=== PATIENT | male | born 1990 | race American Indian/Alaskan Native ===

== ENCOUNTER 2017-03-22 12:53 | Emergency (ER) | payer MEDICAID ==
[2017-03-22 13:07] VITALS: BP 131/78; PULSE 76; RESP 16; TEMP 98.1; O2SAT 99
[2017-03-22 14:07] LABS: RBC URINE 2 /hpf (0-3)
[2017-03-22 14:27] LABS: URINE BILIRUBIN NEGATIVE (NEGATIVE); URINE BLOOD 1+ (NEGATIVE); URINE COLOR YELLOW (YELLOW); URINE GLUCOSE (UA) NEGATIVE (Normal); URINE KETONE NEGATIVE (NEGATIVE); URINE LEUKOCYTE ESTERASE NEGATIVE Leu/uL (Negative); URINE PROTEIN NEGATIVE (NEGATIVE); URINE UROBILINOGEN NORMAL mg/dL (0.2-1.0)
[2017-03-22] MEDS ORDERED: cefTRIAXone (Rocephin) 250 mg Inj IM STA (14:31)
--- NOTE | 2017-03-22 15:04 | C.PDOC ---
History Of Present Illness 26 yr old male presents to the ER with complaints of several day history of penile discharge and dysuria. Patient states he recently had unprotected sex with another women. Patient denies fever, nausea, vomiting, rash, abdominal pain , testicular pain, testicular swelling, back pain, weakness or numbness. Time Seen by Provider: 03/22/17 13:09 Chief Complaint (Nursing): Male Genitourinary History Per: Patient History/Exam Limitations: no limitations Onset/Duration Of Symptoms: Days Current Symptoms Are (Timing): Still Present Associated Symptoms: denies: Fever, Chills, Back Pain Alleviating Factors: None Recent travel outside of the [place]: No Past Medical History Reviewed: Historical Data, Nursing Documentation, Vital Signs Vital Signs: Last Vital Signs Temp 98.1 F 03/22/17 13:05 Pulse 76 03/22/17 13:05 Resp 16 03/22/17 13:05 BP 131/78 03/22/17 13:05 Pulse Ox 99 03/22/17 19:59 Family History: States: No Known Family Hx - Social History Hx Alcohol Use: Yes Hx Substance Use: No - Immunization History Hx Tetanus Toxoid Vaccination: No Hx Influenza Vaccination: No Hx Pneumococcal Vaccination: No Review Of Systems Except As Marked, All Systems Reviewed And Found Negative. Constitutional: Negative for: Fever Gastrointestinal: Negative for: Nausea, Vomiting, Abdominal Pain Genitourinary: Positive for: Dysuria, Penile Discharge Musculoskeletal: Negative for: Back Pain Neurological: Negative for: Weakness, Numbness Physical Exam - Physical Exam Appears: Non-toxic, No Acute Distress Skin: Warm, Dry, No Rash Head: Atraumatic, Normacephalic Eye(s): bilateral: Normal Inspection Oral Mucosa: Moist Neck: Normal ROM, Supple Chest: Symmetrical, No Tenderness Cardiovascular: Rhythm Regular, No Friction Rub, No Murmur Respiratory: Normal Breath Sounds, No Rales, No Rhonchi, No Stridor, No Wheezing Gastrointestinal/Abdominal: Normal Exam, Soft, No Tenderness, No Guarding, No Rebound Extremity: Normal ROM, No Swelling Neurological/Psych: Oriented x3, Normal Speech, Normal Motor Gait: Steady ED Course And Treatment O2 Sat by Pulse Oximetry: 99 (RA) Pulse Ox Interpretation: Normal Medical Decision Making Medical Decision Making: PLAN: * Chlamydia GC * Urinalysis * Azithromycin PO * Rocephin IM Disposition - Disposition Referrals: El Jimenez MD [Staff Provider] - Disposition: HOME/ ROUTINE Disposition Time: 15:02 Condition: GOOD Additional Instructions: Make sure to get sexual partners treated. Follow up with the medical doctor within 1-2 days. Return if worsened. 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 - Scribe Statement The provider has reviewed the documentation as recorded by the Scribe Willa Villalobos All medical record entries made by the Pippaibe were at my direction and personally dictated by me. I have reviewed the chart and agree that the record accurately reflects my personal performance of the history, physical exam, medical decision making, and the department course for this patient. I have also personally directed, reviewed, and agree with the discharge instructions and disposition.
== END 2017-03-22 15:16 | disposition home or self-care (01) ==
LOC: C.ER 12:53
DX: N34.2 Other urethritis (principal)
CPT/HCPCS: 81001; 87086; 87491; 87591; 96372; 99284; J0696

== ENCOUNTER 2017-09-10 11:02 | Emergency (ER) | payer MEDICAID, OTHER ==
[2017-09-10 11:06] VITALS: RESP 18; TEMP 98.1
[2017-09-10] MEDS ORDERED: cefTRIAXone (Rocephin) 250 mg Inj IM STA (12:01)
--- NOTE | 2017-09-10 12:34 | C.PDOC ---
History Of Present Illness 27-year-old male, presents to the emergency department with complaints of discharge from penis since this morning associated with dysuria. Patient notes he had unprotected intercourse with new partner earlier in the week. States he has a history of similar episode last year and was diagnosed with Chlamydia. Denies any testicular pain, fever, hematuria, abdominal pain or any other associated symptoms. No other complaints at this time. Time Seen by Provider: 09/10/17 11:18 Chief Complaint (Nursing): Male Genitourinary History Per: Patient History/Exam Limitations: no limitations Onset/Duration Of Symptoms: Days Current Symptoms Are (Timing): Still Present Past Medical History Reviewed: Historical Data, Nursing Documentation, Vital Signs Vital Signs: Last Vital Signs Temp 98.1 F 09/10/17 13:02 Pulse 58 L 09/10/17 13:02 Resp 18 09/10/17 13:02 BP 131/85 09/10/17 13:02 Pulse Ox 100 09/10/17 13:36 Family History: States: No Known Family Hx - Social History Hx Alcohol Use: Yes Hx Substance Use: No - Immunization History Hx Tetanus Toxoid Vaccination: No Hx Influenza Vaccination: No Hx Pneumococcal Vaccination: No Physical Exam - Physical Exam Appears: Well, Non-toxic, No Acute Distress Skin: Normal Color, Warm, Dry, No Rash Eye(s): bilateral: Normal Inspection, EOMI Nose: Normal Oral Mucosa: Moist Lips: Normal Appearing Neck: Normal ROM Cardiovascular: Rhythm Regular Respiratory: Normal Breath Sounds, No Accessory Muscle Use Gastrointestinal/Abdominal: Soft, No Tenderness, No Guarding, No Rebound Extremity: Normal ROM Neurological/Psych: Oriented x3, Normal Speech ED Course And Treatment O2 Sat by Pulse Oximetry: 100 (RA) Pulse Ox Interpretation: Normal Progress Note: GC/Chlamydia, Urine Culture and UA ordered and reviewed. Patient treated with IM Rocephin and PO Azithromycin. Patient advised to use protection for intercourse, and treat partner. Disposition - Disposition Referrals: Noman Nichols MD [Staff Provider] - Disposition: HOME/ ROUTINE Disposition Time: 12:42 Condition: STABLE Additional Instructions: Follow up with your primary medical doctor or clinic in 2-5 days for further evaluation. Return to the emergency department at any time if symptoms persist or worsen. Instructions: Urethritis, Screening for Sexually Transmitted Infections Forms: [employer] (Polish) - Clinical Impression Clinical Impression: Urethritis - Scribe Statement The provider has reviewed the documentation as recorded by the Scribe (Grace Grey) All medical record entries made by the Scribe were at my direction and personally dictated by me. I have reviewed the chart and agree that the record accurately reflects my personal performance of the history, physical exam, medical decision making, and the department course for this patient. I have also personally directed, reviewed, and agree with the discharge instructions and disposition.
[2017-09-10 12:56] LABS: SQUAMOUS EPITHIAL < 1 /hpf (0-5); URINE BACTERIA RARE (<OCC); URINE BILIRUBIN NEGATIVE (NEGATIVE); URINE BLOOD NEGATIVE (NEGATIVE); URINE CLARITY Clear (Clear); URINE COLOR Yellow (YELLOW); URINE GLUCOSE (UA) NORMAL (Normal); URINE LEUKOCYTE ESTERASE TRACE Leu/uL (Negative); URINE NITRATE NEGATIVE (NEGATIVE); URINE PROTEIN NEGATIVE (NEGATIVE); URINE UROBILINOGEN NORMAL mg/dL (0.2-1.0)
[2017-09-10 13:03] VITALS: BP 131/85; PULSE 58
[2017-09-10 13:35] VITALS: O2SAT 100
== END 2017-09-10 13:05 | disposition home or self-care (01) ==
LOC: C.ER 11:02
DX: N34.2 Other urethritis (principal)
CPT/HCPCS: 81001; 87086; 87491; 87591; 96372; 99285; J0696

== ENCOUNTER 2017-09-14 01:29 | Emergency (ER) | payer OTHER ==
--- NOTE | 2017-09-14 02:52 | C.PDOC ---
History Of Present Illness 27 y/o male presents to ED with complaints of stomachache associated with fever , nausea, and dizziness that began today. Patient states he did not eat at all today. Denies cough, runny nose, or any other complaints. Patient took Tylenol with mild relief. Patient has a positive sick contact at home. Time Seen by Provider: 09/14/17 01:50 Chief Complaint (Nursing): Fever History Per: Patient History/Exam Limitations: no limitations Onset/Duration Of Symptoms: Hrs Current Symptoms Are (Timing): Still Present Location Of Pain: None Sick Contacts (Context): Family Member(s) (sister) Associated Symptoms: Fever, Nausea. denies: Chills, Vomiting Ear Symptoms: Bilateral: None Severity: None Recent travel outside of the [place]: No Past Medical History Reviewed: Historical Data, Nursing Documentation, Vital Signs Vital Signs: Last Vital Signs Temp 98.7 F 09/14/17 03:16 Pulse 85 09/14/17 03:16 Resp 18 09/14/17 03:16 BP 102/60 09/14/17 03:16 Pulse Ox 97 09/14/17 03:48 - Medical History PMH: No Chronic Diseases Surgical History: No Surg Hx Family History: States: No Known Family Hx - Social History Hx Alcohol Use: Yes Hx Substance Use: No - Immunization History Hx Tetanus Toxoid Vaccination: No Hx Influenza Vaccination: No Hx Pneumococcal Vaccination: No Review Of Systems Constitutional: Positive for: Fever. Negative for: Chills ENT: Negative for: Nose Discharge Respiratory: Negative for: Cough Gastrointestinal: Positive for: Nausea, Other (stomachache). Negative for: Vomiting, Diarrhea Neurological: Positive for: Dizziness. Negative for: Weakness, Numbness Physical Exam - Physical Exam Appears: Non-toxic, No Acute Distress Skin: Normal Color, Warm, No Rash Head: Atraumatic, Normacephalic Eye(s): bilateral: Normal Inspection, PERRL, EOMI Ear(s): Bilateral: Normal Oral Mucosa: Moist Throat: No Erythema, No Exudate Neck: Normal ROM, Supple Chest: Symmetrical, No Tenderness Cardiovascular: Rhythm Regular, No Friction Rub, No Murmur Respiratory: No Decreased Breath Sounds, No Rales, No Rhonchi, No Wheezing Gastrointestinal/Abdominal: Soft, No Tenderness, No Distention, No Guarding, No Rebound Back: Normal Inspection, No CVA Tenderness Extremity: Normal ROM, No Tenderness, No Swelling Neurological/Psych: Oriented x3, Normal Speech, Normal Cognition, Normal Motor Gait: Steady ED Course And Treatment O2 Sat by Pulse Oximetry: 97 (RA) Pulse Ox Interpretation: Normal Medical Decision Making Medical Decision Making: Administered Motrin, Tamiflu, and Zofran. On re-exam, the patient reports improvement of symptoms. Lungs are CTA, heart is RRR, abdomen is soft, non-tender and tolerating PO well. Ambulatory in the ED with steady gait. Follow up with the medical doctor/clinic within 1-2 days. Return if worsened. Disposition - Disposition Referrals: [facility] at [facility] [Outside] Disposition: HOME/ ROUTINE Disposition Time: 03:47 Condition: FAIR Additional Instructions: Follow up with the medical doctor within 1-2 days. Return if worsened. 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 - Scribe Statement The provider has reviewed the documentation as recorded by the Katy Bustillos All medical record entries made by the Pippaibcharly were at my direction and personally dictated by me. I have reviewed the chart and agree that the record accurately reflects my personal performance of the history, physical exam, medical decision making, and the department course for this patient. I have also personally directed, reviewed, and agree with the discharge instructions and disposition.
[2017-09-14 03:17] VITALS: BP 102/60; PULSE 85; RESP 18; TEMP 98.7
[2017-09-14 03:48] VITALS: O2SAT 97
== END 2017-09-14 04:14 | disposition home or self-care (01) ==
LOC: C.ER 01:29
DX: J11.1 Influenza due to unidentified influenza virus with other respiratory manifestations (principal); R50.9 Fever, unspecified

== ENCOUNTER 2018-02-18 10:41 | Emergency (ER) | payer MEDICAID, OTHER ==
[2018-02-18 10:49] VITALS: BP 132/80; PULSE 79; RESP 18; TEMP 98.4; O2SAT 98
--- NOTE | 2018-02-18 11:05 | C.PDOC ---
History Of Present Illness <Berkley Martinez Yaritza - Last Filed: 02/18/18 12:12> <Jose Maria Barney - Last Filed: 02/18/18 13:35> Patient is a 27 year old male with no known past medical history, who presents to the ED with complaint of right hand pain s/p punching the wall a couple of days ago. Patient admits to very mild limited range of motion but he has been able to continue to work with his hands. In addition, patient had complaint of dry skin in his scrotum. Otherwise, patient is stable and with no other associated symptoms. (Jose Maria Barney) <JuanBerkley M - Last Filed: 02/18/18 12:12> History Per: Patient History/Exam Limitations: no limitations Onset/Duration Of Symptoms: Days Current Symptoms Are (Timing): Still Present Severity: Moderate Location: Right hand ( Dorsal) Recent travel outside of the [place]: No <Jose Maria Barney - Last Filed: 02/18/18 13:35> Time Seen by Provider: 02/18/18 10:55 Chief Complaint (Nursing): Upper Extremity Problem/Injury Past Medical History Family History: States: No Known Family Hx - Social History Hx Alcohol Use: Yes Hx Substance Use: No - Immunization History Hx Tetanus Toxoid Vaccination: No Hx Influenza Vaccination: No Hx Pneumococcal Vaccination: No <Jose Maria Barney - Last Filed: 02/18/18 13:35> Vital Signs: Last Vital Signs Temp 98.4 F 02/18/18 10:55 Pulse 79 02/18/18 10:55 Resp 18 02/18/18 10:55 BP 132/80 02/18/18 10:55 Pulse Ox 98 02/18/18 12:05 Review Of Systems Constitutional: Negative for: Fever, Chills, Weakness, Weight loss Eyes: Negative for: Pain Cardiovascular: Negative for: Chest Pain, Palpitations, Orthopnea, Edema, Light Headedness Respiratory: Negative for: Cough, Shortness of Breath Gastrointestinal: Negative for: Nausea, Abdominal Pain, Diarrhea, Constipation Genitourinary: Negative for: Dysuria, Incontinence, Hematuria Musculoskeletal: Positive for: Hand Pain Skin: Negative for: Bruising Neurological: Negative for: Weakness, Numbness <Jose Maria Barney - Last Filed: 02/18/18 13:35> Physical Exam - Physical Exam Skin: Normal Color, Warm Head: Atraumatic, Normacephalic Eye(s): bilateral: EOMI Oral Mucosa: Moist Neck: Normal Male Genital: Other (Dry skin in the scrotum region ) Extremity: Tenderness (Right hand tenderness localized to the dorsal region, pain elicited with flexion, ulnar and radial deviation ) Neurological/Psych: Oriented x3, Normal Speech Disoriented To: Person <Jose Maria Barney E - Last Filed: 02/18/18 13:35> ED Course And Treatment O2 Sat by Pulse Oximetry: 98 <Jose Maria Barney E - Last Filed: 02/18/18 13:35> Medical Decision Making <Berkley Martinez - Last Filed: 02/18/18 12:12> <Jose Maria Barney E - Last Filed: 02/18/18 13:35> Medical Decision Making: Right Hand X-ray: Normal right hand radiographs. (Jose Maria Barney) Disposition Counseled Patient/Family Regarding: Studies Performed, Diagnosis, Need For Followup - Disposition Disposition Time: 12:13 - POA Present On Arrival: None <Berkley Martinez - Last Filed: 02/18/18 12:12> Discussed With : Berkley Martinez <Jose Maria Barney - Last Filed: 02/18/18 13:35> - Disposition Referrals: at [facility] [Outside] Disposition: HOME/ ROUTINE Condition: STABLE Additional Instructions: Follow up in clinic with any further issues. Use Aquaphor or other moisturizer for dry skin. Instructions: Contusion (DC) Forms: [employer] (Czech), General Discharge Instructions - Clinical Impression Clinical Impression: Contusion
--- NOTE | 2018-02-18 11:47 | RAD ---
PROCEDURE: Right Hand Radiographs. HISTORY: Trauma COMPARISON: None. FINDINGS: BONES: Normal. No fracture. JOINTS: Normal. No osteoarthritic changes. SOFT TISSUES: Normal. OTHER FINDINGS: None. IMPRESSION: Normal right hand radiographs.
== END 2018-02-18 12:20 | disposition home or self-care (01) ==
LOC: C.ER 10:41
DX: S60.221A Contusion of right hand, initial encounter (principal); W22.01XA Walked into wall, initial encounter

== ENCOUNTER 2018-02-18 15:53 | Emergency (ER) | payer MEDICAID ==
[2018-02-18 15:57] VITALS: BP 129/75; PULSE 86; RESP 16; TEMP 98.1; O2SAT 99
--- NOTE | 2018-02-18 16:50 | C.PDOC ---
History Of Present Illness 27 y/o male returns to the ED after being seen earlier today for hand pain after punching a wall. Patient had also complained of dry skin around the penile area with no pain, lesions, discharge, or rash. Patient was treated for the hand injury, advised to use aquaphor on the dry skin. Now patient returns after his partner was diagnosed with HPV, stating he is concerned for genital warts. Otherwise patient offers no complaints of discharge, bleeding, warts, lesions, rash, or other associated symptoms. Time Seen by Provider: 02/18/18 16:23 Chief Complaint (Nursing): Male Genitourinary History Per: Patient History/Exam Limitations: no limitations Onset/Duration Of Symptoms: Days Current Symptoms Are (Timing): Still Present Past Medical History Reviewed: Historical Data, Nursing Documentation, Vital Signs Vital Signs: Last Vital Signs Temp 98.1 F 02/18/18 15:56 Pulse 86 02/18/18 15:56 Resp 16 02/18/18 15:56 BP 129/75 02/18/18 15:56 Pulse Ox 99 02/18/18 16:51 - Medical History PMH: No Chronic Diseases Surgical History: No Surg Hx Family History: States: No Known Family Hx - Social History Hx Tobacco Use: Yes Hx Alcohol Use: Yes Hx Substance Use: No - Immunization History Hx Tetanus Toxoid Vaccination: No Hx Influenza Vaccination: No Hx Pneumococcal Vaccination: No Review Of Systems Except As Marked, All Systems Reviewed And Found Negative. Constitutional: Negative for: Fever, Chills Gastrointestinal: Negative for: Nausea, Vomiting, Abdominal Pain Genitourinary: Positive for: Other (dry skin around penile area). Negative for : Dysuria, Hematuria, Penile Discharge, Scrotal Pain, Rash, Penile Pain Skin: Negative for: Lesions Neurological: Negative for: Weakness, Numbness Physical Exam - Physical Exam Appears: Non-toxic, No Acute Distress Skin: Normal Color, Warm, Dry Head: Atraumatic, Normacephalic Eye(s): bilateral: Normal Inspection, PERRL, EOMI Oral Mucosa: Moist Neck: Normal ROM, Supple Chest: Symmetrical Gastrointestinal/Abdominal: Soft, No Tenderness, No Distention, No Guarding Back: Normal Inspection, No CVA Tenderness, No Vertebral Tenderness Male Genital: Normal Inspection, Other (Flaking, dry skin around the base of his penis) ED Course And Treatment O2 Sat by Pulse Oximetry: 99 Disposition Counseled Patient/Family Regarding: Need For Followup - Disposition Referrals: [facility] [Outside] Disposition: HOME/ ROUTINE Disposition Time: 16:48 Condition: STABLE Additional Instructions: Call the ED tomorrow after 1PM for your results. Ask for Dr. Martinez [phone] Follow up in clinic and with Infection Control. Instructions: Condom Options Forms: [facility] (Khmer), General Discharge Instructions - POA Present On Arrival: None - Clinical Impression Clinical Impression: STD exposure
== END 2018-02-18 17:21 | disposition home or self-care (01) ==
LOC: C.ER 15:53
DX: Z20.2 Contact with and (suspected) exposure to infections with a predominantly sexual mode of transmission (principal); Z72.0 Tobacco use

== ENCOUNTER 2018-05-08 14:15 | Emergency (ER) | payer MEDICAID, OTHER ==
[2018-05-08 14:23] VITALS: BP 119/77; PULSE 89; RESP 18; TEMP 98.8; O2SAT 100
[2018-05-08 14:47] LABS: SQUAMOUS EPITHIAL < 1 /hpf (0-5); URINE BILIRUBIN NEGATIVE (NEGATIVE); URINE BLOOD NEGATIVE (NEGATIVE); URINE CLARITY Clear (Clear); URINE COLOR Yellow (YELLOW); URINE GLUCOSE (UA) NORMAL (Normal); URINE LEUKOCYTE ESTERASE NEG Leu/uL (Negative); URINE PROTEIN NEGATIVE (NEGATIVE); URINE UROBILINOGEN NORMAL mg/dL (0.2-1.0)
--- NOTE | 2018-05-08 14:54 | C.PDOC ---
History Of Present Illness 27 yo male come in for evaluation of rash developed to penis area for past week. Pt admits, " was applying eczema cream without significant improvement". Otherwise, pt denies fever, chills, sore throat, abd. pain, N/V/D, UTi sx, hematuria, penile discharge. Pt admits, sexually active, not protective. previous hx of STD. Time Seen by Provider: 05/08/18 14:24 Chief Complaint (Nursing): Abnormal Skin Integrity History Per: Patient Past Medical History Reviewed: Historical Data, Nursing Documentation, Vital Signs Vital Signs: Last Vital Signs Temp 98.8 F 05/08/18 14:19 Pulse 89 05/08/18 14:19 Resp 18 05/08/18 14:19 BP 119/77 05/08/18 14:19 Pulse Ox 100 05/08/18 14:19 - Medical History PMH: No Chronic Diseases Surgical History: No Surg Hx Family History: States: No Known Family Hx - Social History Hx Tobacco Use: Yes Hx Alcohol Use: Yes Hx Substance Use: No - Immunization History Hx Tetanus Toxoid Vaccination: No Hx Influenza Vaccination: No Hx Pneumococcal Vaccination: No Review Of Systems Except As Marked, All Systems Reviewed And Found Negative. Constitutional: Negative for: Fever, Chills ENT: Negative for: Ear Discharge, Nose Discharge, Throat Pain Cardiovascular: Negative for: Chest Pain, Palpitations Respiratory: Negative for: Cough, Shortness of Breath Gastrointestinal: Negative for: Nausea, Vomiting, Abdominal Pain, Diarrhea Genitourinary: Positive for: Rash. Negative for: Dysuria, Frequency, Incontinence, Hematuria, Penile Discharge, Scrotal Pain, Penile Pain Musculoskeletal: Negative for: Back Pain Neurological: Negative for: Altered Mental Status, Headache, Dizziness Physical Exam - Physical Exam Appears: Well, Non-toxic, No Acute Distress Skin: Normal Color, Warm, Dry, No Rash Head: Normacephalic Eye(s): bilateral: PERRL Nose: No Discharge Oral Mucosa: Moist, No Drooling Tongue: No Lesions Lips: No Lesions Throat: No Erythema Neck: Supple Cardiovascular: Rhythm Regular, No Murmur, No JVD Respiratory: No Decreased Breath Sounds, No Accessory Muscle Use, No Stridor, No Wheezing Gastrointestinal/Abdominal: Soft, No Tenderness, No Distention, No Guarding, No Rebound Back: No CVA Tenderness Male Genital: No Testicular Tenderness, No Testicular Swelling, Other (scattered round, firm, non-tender papules umbilicated in ceter to penile shaft and gland. no edmea, no erythema, no discharge.) Extremity: Normal ROM, No Deformity, No Swelling Neurological/Psych: Oriented x3, Normal Speech ED Course And Treatment O2 Sat by Pulse Oximetry: 100 Pulse Ox Interpretation: Normal Progress Note: On re-evaluation, pt is Afebrile, hemodynamicaly stable. Non- toxic, tolerate Po well in Ed. neck: Supple, (-) meningeal sign. ENT: no acute findings. Abd: benign, (-) guarding, (-) rebound. back: (-) CVA tenderness. : exam c/w non-tender lesion likely c/w molluscum contageousum. UA results review (-). GC- pending. Pt advised. ref. to f/u with PMD, Urology in 2-3 days for re-eavl. return if any new changes. Disposition Counseled Patient/Family Regarding: Studies Performed, Diagnosis, Need For Followup - Disposition Referrals: [facility] [Outside] Disposition: HOME/ ROUTINE Disposition Time: 14:54 Condition: STABLE Additional Instructions: Will call back if results for STD come back positive Encourage partner to be checked for STD Consider to practice safe sex Follow up with PMD, Clinic for further evaluation. return if any new changes. Instructions: Molluscum Contagiosum, Screening for Sexually Transmitted Inf ections, STD Prevention Forms: [facility] (Chilean) - Clinical Impression Clinical Impression: Mollusca contagiosa
== END 2018-05-08 15:20 | disposition home or self-care (01) ==
LOC: C.ER 14:15
DX: B08.1 Molluscum contagiosum (principal)

== ENCOUNTER 2018-06-17 11:58 | Emergency (ER) | payer OTHER ==
[2018-06-17 12:44] VITALS: BP 135/75; PULSE 78; RESP 16; TEMP 98.7; O2SAT 99; BMI 25.0
--- NOTE | 2018-06-17 14:18 | C.PDOC ---
History Of Present Illness 27 y/o male, otherwise well, presents to the ED requesting STD testing. Patient denies having any symptoms but states he had unprotected sex over the weekend. Otherwise he denies any headache chest pain, nausea, vomiting, sob, dysuria, hematuria, or penile discharge. Reports in the past, he was tested for G/C and was told it was positive though he had no symptoms at that time. Time Seen by Provider: 06/17/18 12:35 Chief Complaint (Nursing): Male Genitourinary History Per: Patient History/Exam Limitations: no limitations Onset/Duration Of Symptoms: Days Current Symptoms Are (Timing): Still Present Past Medical History Reviewed: Historical Data, Nursing Documentation, Vital Signs Vital Signs: Last Vital Signs Temp 98.7 F 06/17/18 12:36 Pulse 78 06/17/18 12:36 Resp 16 06/17/18 12:36 BP 135/75 06/17/18 12:36 Pulse Ox 99 06/17/18 12:36 - Medical History PMH: Sexually Transmitted Disease Family History: States: No Known Family Hx - Social History Hx Tobacco Use: Yes Hx Alcohol Use: Yes Hx Substance Use: No - Immunization History Hx Tetanus Toxoid Vaccination: No Hx Influenza Vaccination: No Hx Pneumococcal Vaccination: No Review Of Systems Except As Marked, All Systems Reviewed And Found Negative. Constitutional: Negative for: Fever, Chills Cardiovascular: Negative for: Chest Pain Respiratory: Negative for: Shortness of Breath Gastrointestinal: Negative for: Nausea, Vomiting, Abdominal Pain Genitourinary: Negative for: Dysuria, Frequency, Hematuria, Penile Discharge Skin: Negative for: Rash Neurological: Negative for: Headache Physical Exam - Physical Exam Appears: Well, Non-toxic, No Acute Distress Skin: Normal Color, Warm, Dry Head: Atraumatic, Normacephalic Eye(s): bilateral: Normal Inspection, PERRL, EOMI Oral Mucosa: Moist Neck: Normal ROM Chest: Symmetrical Respiratory: No Accessory Muscle Use, Other (No respiratory distress) Gastrointestinal/Abdominal: Soft, No Tenderness, No Guarding, No Rebound Male Genital: Normal Inspection, Other (No rash) Extremity: Bilateral: Atraumatic, Normal ROM Neurological/Psych: Normal Speech, Other (Awake, alert, cooperative) ED Course And Treatment O2 Sat by Pulse Oximetry: 99 (RA) Pulse Ox Interpretation: Normal Medical Decision Making Medical Decision Making: Impression: Possible STD Plan: --RPR --UA --G/C --HIV 1&2 14:30 Patient states he needs to leave. Advised to call the ED for results. Disposition Counseled Patient/Family Regarding: Studies Performed, Need For Followup - Disposition Disposition: HOME/ ROUTINE Disposition Time: 14:25 Condition: STABLE Additional Instructions: Call ED for culture results Dr. Martinez [phone] Forms: [facility] (Romansh) - POA Present On Arrival: None - Clinical Impression Clinical Impression: STD exposure - Scribe Statement The provider has reviewed the documentation as recorded by the Pippaibcharly Hernandez Provider Attestation: All medical record entries made by the Pippaibcharly were at my direction and personally dictated by me. I have reviewed the chart and agree that the record accurately reflects my personal performance of the history, physical exam, medical decision making, and the department course for this patient. I have also personally directed, reviewed, and agree with the discharge instructions and disposition.
[2018-06-17 14:21] LABS: URINE BILIRUBIN NEGATIVE (NEGATIVE); URINE BLOOD NEGATIVE (NEGATIVE); URINE CLARITY Clear (Clear); URINE COLOR Yellow (YELLOW); URINE GLUCOSE (UA) NORMAL (Normal); URINE LEUKOCYTE ESTERASE NEG Leu/uL (Negative); URINE PROTEIN NEGATIVE (NEGATIVE)
== END 2018-06-17 14:31 | disposition home or self-care (01) ==
LOC: C.ER 11:58
DX: Z20.2 Contact with and (suspected) exposure to infections with a predominantly sexual mode of transmission (principal)

== ENCOUNTER 2018-11-18 14:47 | Emergency (ER) | payer OTHER ==
[2018-11-18 14:47] VITALS: BMI 25.0
[2018-11-18 14:52] VITALS: O2SAT 100
[2018-11-18] MEDS ORDERED: cefTRIAXone (Rocephin) 250 mg Inj IM STA (15:11)
--- NOTE | 2018-11-18 15:18 | C.PDOC ---
History Of Present Illness 28 year old male presents to ED with complaint of penile discharge since yesterday. Patient is concerned about possible STD exposure. Patient denies swelling, dysuria, fever, or rash. PENILE DC YEST. NO SWELLING, DYSURIA, FEVER, RASH. +CONCERN FOR STD EXPOSURE. NO OTHER SX EXAM NEG MDM GC TX. PT REFERRED STD CLINIC, SAFE SEX INSTRUCTION Time Seen by Provider: 11/18/18 15:10 Chief Complaint (Nursing): Male Genitourinary History Per: Patient History/Exam Limitations: no limitations Onset/Duration Of Symptoms: Days (1) Current Symptoms Are (Timing): Still Present Associated Symptoms: Other (penile discharge). denies: Fever, Chills, Urinary Symptoms Past Medical History Reviewed: Historical Data, Nursing Documentation, Vital Signs Vital Signs: Last Vital Signs Temp 98.9 F 11/18/18 14:49 Pulse 66 11/18/18 14:49 Resp 18 11/18/18 14:49 BP 134/81 11/18/18 14:49 Pulse Ox 100 11/18/18 14:49 Primary Care Provider: FAMILY PROVIDER,NO - Medical History PMH: Sexually Transmitted Disease Surgical History: No Surg Hx Family History: States: Unknown Family Hx - Social History Hx Tobacco Use: Yes Hx Alcohol Use: Yes Hx Substance Use: No - Immunization History Hx Tetanus Toxoid Vaccination: No Hx Influenza Vaccination: No Hx Pneumococcal Vaccination: No Review Of Systems Except As Marked, All Systems Reviewed And Found Negative. Genitourinary: Positive for: Penile Discharge Physical Exam - Physical Exam Appears: Well, Non-toxic, No Acute Distress Skin: Normal Color, Warm, Dry Head: Atraumatic, Normacephalic Neck: Normal ROM, Supple Chest: Symmetrical, No Deformity Cardiovascular: Rhythm Regular, No Murmur Respiratory: No Accessory Muscle Use, No Rales, No Rhonchi, No Wheezing Gastrointestinal/Abdominal: Soft, No Tenderness Extremity: Capillary Refill (<2 seconds) Extremity: Bilateral: Atraumatic, Normal Color And Temperature, Normal ROM Pulses: Left Radial: Normal, Right Radial: Normal Neurological/Psych: Oriented x3, Normal Speech, Normal Cognition ED Course And Treatment O2 Sat by Pulse Oximetry: 100 (in RA) Pulse Ox Interpretation: Normal Medical Decision Making Medical Decision Making: [facility] GC treatment. Patient preferred [facility]. Patient advised on safe sex instruction. Disposition Counseled Patient/Family Regarding: Studies Performed, Diagnosis, Need For Followup - Disposition Referrals: [facility] [Other] Disposition: HOME/ ROUTINE Disposition Time: 15:16 Condition: IMPROVED Instructions: Sexually-Transmitted Diseases (DC) Forms: [employer] ([place]) - Clinical Impression Clinical Impression: Penile discharge, STD exposure - Scribe Statement The provider has reviewed the documentation as recorded by the Scribe (Lenora Diaz) All medical record entries made by the Scribe were at my direction and personally dictated by me. I have reviewed the chart and agree that the record accurately reflects my personal performance of the history, physical exam, medical decision making, and the department course for this patient. I have also personally directed, reviewed, and agree with the discharge instructions and disposition.
[2018-11-18 15:40] VITALS: BP 133/83; PULSE 63; RESP 14; TEMP 98.3
== END 2018-11-18 15:46 | disposition home or self-care (01) ==
LOC: C.ER 14:47
DX: R36.9 Urethral discharge, unspecified (principal); Z20.2 Contact with and (suspected) exposure to infections with a predominantly sexual mode of transmission
CPT/HCPCS: 87491; 87591; 96372; 99284; J0696

== ENCOUNTER 2018-11-19 21:45 | Emergency (ER) | payer OTHER ==
[2018-11-19 21:46] VITALS: BMI 25.0
[2018-11-19 21:58] VITALS: BP 131/82; PULSE 75; RESP 18; TEMP 98.5; O2SAT 97
--- NOTE | 2018-11-19 22:24 | C.PDOC ---
History Of Present Illness 28 year old male was seen yesterday for STD check presents today complaining of a small pimple on his penis that burst with yellowish discharge. Patient had the pimple yesterday but did not feel like he needed to have it checked out when he was seen here for STI c/o. Denies penile pain, itching, or acute drainage. Time Seen by Provider: 11/19/18 22:05 Chief Complaint (Nursing): Male Genitourinary History Per: Patient History/Exam Limitations: no limitations Onset/Duration Of Symptoms: Hrs Associated Symptoms: denies: Other (Penile pain, active drainage, itching) Recent travel outside of the [place]: No Past Medical History Reviewed: Historical Data, Nursing Documentation, Vital Signs Vital Signs: Last Vital Signs Temp 98.5 F 11/19/18 21:51 Pulse 75 11/19/18 21:51 Resp 18 11/19/18 21:51 BP 131/82 11/19/18 21:51 Pulse Ox 97 11/19/18 21:51 Primary Care Provider: Non [facility] Provider, - Medical History PMH: Sexually Transmitted Disease Family History: States: Unknown Family Hx - Social History Hx Tobacco Use: Yes Hx Alcohol Use: Yes Hx Substance Use: No - Immunization History Hx Tetanus Toxoid Vaccination: No Hx Influenza Vaccination: No Hx Pneumococcal Vaccination: No Review Of Systems Constitutional: Negative for: Fever, Chills Genitourinary: Positive for: Other (Pimple on penis) Physical Exam - Physical Exam Appears: Non-toxic, No Acute Distress Skin: Warm Head: Atraumatic, Normacephalic Eye(s): bilateral: Normal Inspection, PERRL Gastrointestinal/Abdominal: Soft, No Tenderness Back: No CVA Tenderness Male Genital: No Testicular Tenderness, No Testicular Swelling, No Inguinal Tenderness, No Inguinal Swelling, No Scrotal Swelling, Other (Small dry nonerythematous nontender pimple like open lesion to dorsal aspect below the glans, appears dry healing. No herpetiform lesions, no vesicles. fine pimples around the glans/ chafing) Neurological/Psych: Oriented x3, Normal Speech ED Course And Treatment O2 Sat by Pulse Oximetry: 97 (Room air) Pulse Ox Interpretation: Normal Progress Note: Patient is resting comfortably in no acute distress, vitals are stable, will discharge home with instructions to follow up with PMD. Disposition Counseled Patient/Family Regarding: Diagnosis, Need For Followup - Disposition Referrals: [facility] [Outside] Disposition: HOME/ ROUTINE Disposition Time: 22:21 Condition: STABLE Additional Instructions: Please follow up with PMD or in clinic Practice safe sex always Apply small amount of bacitracin or neosporin to area Return to ER as needed or if any concerns Instructions: Folliculitis (DC) Forms: [employer] (Kinyarwanda) - Clinical Impression Clinical Impression: Penile irritation, Folliculitis - PA / RN RECRUITMENT / Resident Statement MD/DO has reviewed & agrees with the documentation as recorded. - Scribe Statement The provider has reviewed the documentation as recorded by the Scribe Antonio Trujillo All medical record entries made by the Scribe were at my direction and personally dictated by me. I have reviewed the chart and agree that the record accurately reflects my personal performance of the history, physical exam, medical decision making, and the department course for this patient. I have also personally directed, reviewed, and agree with the discharge instructions and disposition.
[2018-11-19] MEDS ORDERED: Bacitracin 500 Units/gm Oint Foilpak UD ONE (22:32)
== END 2018-11-19 22:34 | disposition home or self-care (01) ==
LOC: C.ER 21:45
DX: N48.89 Other specified disorders of penis (principal); L73.9 Follicular disorder, unspecified; Z72.0 Tobacco use